=== PATIENT | male | born 1965 | race Caucasian/White ===

== ENCOUNTER 2016-08-31 09:34 | Outpatient (CLI) | payer OTHER ==
[2015-04-12 14:37] VITALS: BP 147/78
== END 2016-08-31 09:35 ==
LOC: RT 09:34
PROVIDERS: ATTEND Family Medicine
DX: R00.2 Palpitations (principal)
CPT/HCPCS: 93225

== ENCOUNTER 2016-12-31 14:29 | Outpatient (CLI) | payer OTHER ==
[2015-04-12 14:37] VITALS: BP 147/78
--- NOTE | 2016-12-31 15:01 | Diagnostic Imaging Report ---
RIGO SOUSA [facility] [address] [address] Report Submission Date: Dec 31, 2016 2:59:00 PM CDT Patient Study Name: TOMÁS SCOTT Date: Dec 31, 2016 2:45:19 PM CDT Modality Type: CR Gender: M Description: LOWER EXTREMITY : 61 Institution: [facility] Physician: RIGO SOUSA Examination: Plain film knee History: Knee discomfort Findings: 3 views of the knee demonstrates percent device in place. No evidence for fracture or loosening. No dislocation. No joint effusion. No soft tissue irregularity. Impression: Knee prosthesis. No fracture or loosening. Electronically signed on Dec 31, 2016 2:59:00 PM CDT by: Norm BRUNER
== END 2016-12-31 14:30 ==
LOC: RAD 14:29
PROVIDERS: ATTEND Family Medicine
DX: M25.561 Pain in right knee (principal); G89.29 Other chronic pain
CPT/HCPCS: 73562

== ENCOUNTER 2017-03-30 08:18 | Outpatient (CLI) | payer OTHER ==
[2015-04-12 14:37] VITALS: BP 147/78
--- NOTE | 2017-03-31 10:55 | SURGICAL PROCEDURE NOTE PAIN ---
REASON FOR VISIT: Mr. Ryan presents with right knee pain for a right knee radiofrequency neurolysis of the genicular sensory nerve innervation of the right knee for peripheral causalgia and complex regional pain syndrome of the right knee. He tells me he had better than 80% relief following the knee genicular nerve root local anesthetic injection which lasted 24 hours. He still has some improvement but only modest. Plan today for superior, medial, and lateral and inferior medial genicular radiofrequency neurolysis with IV sedation. PROCEDURE PERFORMED: Superior, medial, and lateral and inferior medial genicular radiofrequency neurolysis with IV sedation. DESCRIPTION OF PROCEDURE: Consent was obtained after risks were fully explained including bleeding, infection, nerve damage, worsening of symptoms, and no improvement. Patient was positioned supine on the fluoroscopic procedure table and a sterile prep and drape were applied. Under AP and oblique fluoroscopic imaging, a 15-cm , 18-gauge radiofrequency needle was advanced to the location of the superior and inferior genicular nerves at the junction of the epicondylar process of the medial portion of the femur and the proximal portion of the medial tibial condyle. In the same fashion, a lateral needle was placed at the epicondylar margin of the distal femur of the right lateral knee. Then Omnipaque was placed which revealed adequate spread over the area in each knee and there was no evidence of motor stimulation at the knee joint. At this point, each of the nerve roots were anesthetized with bupivacaine mixed with lidocaine and triamcinolone. Following this, radiofrequency lesioning was performed at 80 degrees centigrade for a period of 120 seconds. Patient tolerated the procedure well. There were no apparent complications. ASSESSMENT: 1. Chronic right knee pain, status post knee replacement. 2. Peripheral causalgia. 3. Complex regional pain syndrome of right knee. PLAN: I did dispense information on DRG stimulation in the event that his knee pain should persist. We will follow him up in [address] Del Rio, thank you very much for allowing me to take part in the care of this nice gentleman. cc: Dr. Alec BRUNER
== END 2017-03-30 08:20 ==
LOC: OUT 08:18
PROVIDERS: ATTEND Anesthesiology Pain Medicine
DX: G57.71 Causalgia of right lower limb (principal); G89.4 Chronic pain syndrome; M25.561 Pain in right knee
CPT/HCPCS: 64640; 99213; G0463; Q9966; S1016

== ENCOUNTER 2017-03-30 10:07 | Outpatient (CLI) | payer OTHER ==
[2015-04-12 14:37] VITALS: BP 147/78
[~2017-03-30 10:07] MED LIST: BUPIVACAINE HCL/PF 2.5 MG/ML 10ML VIAL IV ONE; LIDOCAINE HCL/PF 2% 100 MG/5 ML VIAL IJ ONE; MIDAZOLAM HCL 2 MG/2 ML VIAL ONE; NORMAL SALINE 500 ML IV.SOLN IV ONE; SALINE FLUSH 10 ML DISP.SYRIN IVF ONE; TRIAMCINOLONE ACETONID 40MG/ML VIAL ONE; fentaNYL CITRATE/PF 100 MCG/ 2ML AMP ONE
--- NOTE | 2017-03-30 13:43 | Diagnostic Imaging Report ---
RIGO SOUSA [facility] [address] [facility] [address] [address] Report Submission Date: Mar 30, 2017 11:19:53 AM POLISHER APPRENTICE Patient Study Name: TOMÁS SCOTT Date: Mar 30, 2017 10:30:41 AM POLISHER APPRENTICE Modality Type: US Gender: M Description: UNILAT LTD STDY EXT VEINS : 61 Institution: [facility] Physician: RIGO SOUSA Examination: Ultrasound vein History: Calf discomfort Findings: Sonographic evaluation of the left lower extremity venous system from the groin to the popliteal fossa inclusive. Normal compressibility. No luminal filling defect. Normal waveforms and response to augmentation. No popliteal region fluid collection. Impression: No evidence for deep venous thrombosis. Electronically signed on Mar 30, 2017 11:19:53 AM POLISHER APPRENTICE by: Norm BRUNER
== END 2017-03-30 10:10 ==
LOC: RAD 10:07
PROVIDERS: ATTEND Family Medicine
DX: M79.662 Pain in left lower leg (principal)
CPT/HCPCS: 93971; J2001; J2250; J3010; J3301; J3490; J7060

== ENCOUNTER 2017-05-25 08:52 | Outpatient (CLI) | payer OTHER ==
[2015-04-12 14:37] VITALS: BP 147/78
--- NOTE | 2017-05-28 10:05 | PAIN CLINIC PROGRESS NOTES ---
Dear Garo: REASON FOR VISIT: I had the opportunity of seeing Rasta Ryan. This is a patient with right knee pain, peripheral causalgia, and complex regional pain syndrome of the knee status post knee replacement and revision x2. He had an initial good response to a genicular nerve block. He has not had a beneficial response to radiofrequency peripheral nerve root ablation. At this point, I have recommended a dorsal root ganglion neurostimulator, as this has been shown to be very effective at controlling CRPS/peripheral causalgia of the knees. I also discussed its use for lumbar radiculitis and his history of failed back surgical syndrome as well. I did tell him I will need a new CAT scan of his lumbar spine for evaluation prior to any further consideration of implant and we would obtain a study of his psychologic inventory as required. He would like for me to increase his medication and I told him that I would take over the prescription medication of Percocet, and I would increase it to 7.5 mg twice a day and continue him on gabapentin 600 mg 4 times a day and he would follow up in my office. PLAN: At this point, we will begin to actively seek approval for a trial for neuromodulation of complex regional pain syndrome/peripheral causalgia of his right knee. Dr. Del Rio, thank you again for allowing me to take part in the care of this nice gentleman. I appreciate the opportunity to take part in the care of your patients. cc: Dr. Alec BRUNER
== END 2017-05-25 08:53 ==
LOC: OUT 08:52
PROVIDERS: ATTEND Anesthesiology Pain Medicine
DX: G90.523 Complex regional pain syndrome I of lower limb, bilateral (principal); G57.70 Causalgia of unspecified lower limb; Z96.653 Presence of artificial knee joint, bilateral
CPT/HCPCS: 99214; G0463

== ENCOUNTER 2018-04-26 11:59 | Outpatient (CLI) | payer OTHER ==
[2015-04-12 14:37] VITALS: BP 147/78
[2018-04-26 12:54] LABS: eGFR (Non-African) > 60
== END 2018-04-26 12:01 ==
LOC: LAB 11:59
PROVIDERS: ATTEND Family Medicine
DX: I10 Essential (primary) hypertension (principal)
CPT/HCPCS: 36415; 80053; 80061

== ENCOUNTER 2018-09-16 18:53 | Observation (INO) | payer OTHER ==
[2018-09-16] MEDS ORDERED: 0.9 % SODIUM CHLORIDE 1,000 ML IV ONE (19:08)
[2018-09-16] MEDS ORDERED: ASPIRIN 81 MG CHEW TAB ONE (19:28)
[2018-09-16] MEDS ORDERED: ASPIRIN 81 MG CHEW TAB PO ONE (19:28)
[2018-09-16 19:35] LABS: BASOPHILS % 0.3 % (0.0-1.5); NEUTROPHILS # 4.7 # k/uL (1.4-7.7)
[2018-09-16 19:56] LABS: eGFR (Non-African) > 60
--- NOTE | 2018-09-16 20:56 | Diagnostic Imaging Report ---
PERI FERRER (MUNICIPAL CLERK) - ER [facility] [address] [facility].[address] [address] Report Submission Date: Sep 16, 2018 8:09:24 PM CDT Patient Study Name: TOMÁS SCOTT Date: Sep 16, 2018 7:15:34 PM CDT Modality Type: DX Gender: M Description: CHEST 2VIEW : 61 Institution: [facility] Physician: PERI FERRER (MUNICIPAL CLERK) - ER Two view chest Clinical history: Chest pain Findings: The heart size is normal. The pulmonary vasculature is normal. No pleural effusion, pneumothorax or alveolar consolidation. There is atelectasis or scarring left lower lobe. Impression: No acute disease in the chest Electronically signed on Sep 16, 2018 8:09:24 PM CDT by: Michel BRUNER
[2018-09-16] MEDS ORDERED: traMADol HCL 50 MG TABLET PO PRN (22:22)
[2018-09-16] MEDS ORDERED: POTASSIUM CHLORIDE 20 MEQ TABLET.ER PO ONE (22:32)
--- NOTE | 2018-09-16 22:34 | ED Physician Documentation ---
Syncope/Near Syncope - HISTORIAN Historian: patient, spouse - HPI Stated Complaint: near syncope Chief Complaint: Syncope Witnessed: Yes Witnessed By: bystander Position at Time of Episode: standing Symptoms Prior to Episode: palpitations Character of Events(s): almost passed out Symptoms after Event: incontinent of urine Location of Injury: none Associated Symptoms: none Further Comments: yes (53 year old male patient presents after near syncopal episode. Patient states he was loading a door into the back of his truck when he began having palpitations and became dizzy. He sat down in his truck, states he nearly passed out, reports being incontinent of urine. States he did not loose consciousness today. reports patient fell off treadmill at the [facility] yesterday and passed out.) - ROS CONST: denies: recent illness EYES/ENT: none GI/: denies: diarrhea, black stools, problems urinating, other MS/SKIN/LYMPH: denies: joint pain, leg swelling, rash, swollen glands, ankle swelling, other NEURO/PSYCH: denies: confusion, anxiety, depression, other - PAST HX Cardiac Disease: other (HTN) PE Risk Factors: hypertension Other History: Other (arthritis, GERD, ) Surgeries/Procedures: cholecystectomy, other (bilateral knee replacements. ) Allergies/Adverse Reactions: Allergies Allergy/AdvReac Type Severity Reaction Status Date / Time hydrocodone bitartrate Allergy Verified 09/16/18 19:59 [From Vicodin] - SOCIAL HX Smoking History: cigarettes - FAMILY HX Family History: denies: none - VITAL SIGNS Vital Signs: Vital Signs Temp Pulse Resp BP Pulse Ox 98.9 F 67 18 151/70 99 09/16/18 22:28 09/16/18 21:12 09/16/18 22:28 09/16/18 22:28 09/16/18 22:28 - REVIEWED ASSESSMENTS Nursing Assessment Reviewed: Yes Vitals Reviewed: Yes Progress - Progress Progress: Reviewed lab and xray results with patient; recommend admission for further evaluation. Case discussed with Dr Del Rio; will accept for rule out HI and monitoring. - EKG/XRAY/CT EKG: rhythm (SR, no acute changes, rate 72) ED Results Lab/Radiology - Lab Results Lab Results: Lab Results 09/16/18 09/16/18 09/16/18 19:08 19:07 19:07 WBC 7.60 K/ul K/ul (4.00-12.00) RBC 3.94 M/ul M/ul (3.90-5.20) Hgb 12.4 g/dL g/dL (12.0-18.0) Hct 35.9 % L % (37.0-53.0) MCV 91.0 fl fl (80.0-100.0) MCH 31.4 pg pg (28.0-34.0) MCHC 34.5 g/dL g/dL (30.0-36.0) RDW 14.4 % H % (11.3-14.3) Plt Count 223 K/mm3 K/mm3 (130-400) Neut % (Auto) 62.1 % % (39.0-79.0) Lymph % (Auto) 29.2 % % (16.0-50.0) [place] % (Auto) 5.4 % % (0.0-11.0) Eos % (Auto) 3.0 % % (0.0-6.8) Baso % (Auto) 0.3 % % (0.0-1.5) Neut # (Auto) 4.7 # k/uL # k/uL (1.4-7.7) Lymph # (Auto) 2.2 # k/uL # k/uL (0.6-4.0) [place] # (Auto) 0.4 # k/uL # k/uL (0.0-0.9) Eos # (Auto) 0.2 # k/uL # k/uL (0.0-0.6) Baso # (Auto) 0.0 # k/uL # k/uL (0.0-0.5) Sodium 137 mmol/L mmol/L (137-145) Potassium 3.0 mmol/L L mmol/L (3.5-5.1) Chloride 97 mmol/L L mmol/L (98-107) Carbon Dioxide 31 mmol/L H mmol/L (22-30) BUN 12 mg/dL mg/dL (9-20) Creatinine 1.14 mg/dL mg/dL (0.66-1.25) Est GFR ( Amer) > 60 (60 - ) Est GFR (Non-Af Amer) > 60 (60 - ) Glucose 140 mg/dL H mg/dL (74-106) Calcium 8.6 mg/dL mg/dL (8.4-10.2) Total Bilirubin 0.3 mg/dL mg/dL (0.2-1.3) AST 30 U/L U/L (15-46) ALT 22 U/L U/L (13-69) Alkaline Phosphatase 53 U/L U/L (38-126) Troponin I < 0.012 ng/mL L ng/mL (0.012-0.034) Total Protein 6.6 g/dL g/dL (6.3-8.2) Albumin 4.1 g/dL g/dL (3.5-5.0) - Radiology Radiology Impressions: Two view chest Clinical history: Chest pain Findings: The heart size is normal. The pulmonary vasculature is normal. No pleural effusion, pneumothorax or alveolar consolidation. There is atelectasis or scarring left lower lobe. Impression: No acute disease in the chest Electronically signed on Sep 16, 2018 8:09:24 PM CDT by: Michel Wallace - Orders Orders: ED Orders Category Date Time Status Continuous EKG monitoring Q30M Care 09/16/18 19:08 Active Continuous Pulse Oximetry Q30M Care 09/16/18 19:[address] IV Lock 1T Care 09/16/18 19:08 Active CHEST 2VIEW [RAD] Stat Exams 09/16/18 19:08 Completed CBC/PLATELET/DIFF Stat Lab 09/16/18 19:07 Completed CMP Stat Lab 09/16/18 19:07 Completed TROPONIN I Stat Lab 09/16/18 19:08 Completed UA W/MICRO IF INDICATED Stat Lab 09/16/18 19:08 Ordered URINALYSIS Stat Lab 09/16/18 21:10 Ordered 0.9 % Sodium Chloride [Normal Saline] 1,000 ml Med 09/16/18 19:08 Discontinued IV NOW Aspirin [Dale] Med 09/16/18 19:28 Discontinued 324 mg .ROUTE .STK-MED ONE Aspirin [Dale] Med 09/16/18 19:28 Discontinued 324 mg PO NOW ONE EKG WITH COMPARISON Stat Ther 09/16/18 19:08 Ordered Syncope Physical Exam - Physical Exam General Appearance: mild distress EENT: nml eye inspection, PERRL, nml ENT inspection, no apparent trauma, pharynx nml, no CSF leak Respiratory: no resp distress, chest non-tender, breath sounds normal CVS: reg rate & rhythm, heart sounds normal, equal pulses, no murmur, no gallop, PMI nml, no JVD, no friction rub, 24 Abdomen: non-tender, no organomegaly, nml bowel sounds, no distention Skin: normal color, warm/dry, NR, INT, PAL, DR Extremities: non-tender, normal range of motion, no evidence of injury, no edema, J, CROWN BLOCKER - Neuro/Psych Higher Functions: alert, oriented x3, no evidence of acute CVA, mood/affect nml Cranial Nerves: nml as tested Cerebellar: nml as tested, nml gait Sensorimotor: nml motor response, nml sensory response, nml reflexes, nml gait Discharge Clincal Impression: Near syncope Syncope Qualifiers: Syncope type: unspecified Qualified Code(s): R55 - Syncope and collapse Condition: Stable Disposition: ADMITTED INPATIENT Decision to Admit: [id number] Decision Time: 22:00
[2018-09-16] MEDS ORDERED: POTASSIUM CHLORIDE 20 MEQ TABLET.ER ONE (22:38)
[2018-09-16] MEDS ORDERED: GABAPENTIN 300 MG CAPSULE ONE (22:39)
[2018-09-16] MEDS ORDERED: traZODone HCL 50 MG TABLET ONE (22:39)
[2018-09-16] MEDS ORDERED: METOPROLOL TARTRATE 25 MG TABLET ONE (22:39)
[2018-09-16] MEDS: METOPROLOL TARTRATE 50 MG TABLET PO SCH (22:46)
[2018-09-16] MEDS ORDERED: oxyCODONE/ACETAMINOPHEN 5/325 TABLET PO ONE (22:48)
[2018-09-16] MEDS: oxyCODONE/ACETAMINOPHEN 5/325 TABLET PO PRN (22:49)
[2018-09-16] MEDS ORDERED: traZODone HCL 50 MG TABLET PO SCH (23:00)
[2018-09-16 23:59] VITALS: BMI 34.4
--- NOTE | 2018-09-17 07:27 | History and Physical Report ---
History of Present Illnes - History of Present Illness Reason for Visit: syncopal episode History of Present Illness: Patient is a 53-year-old male who presented to the ED after his other new syncopal episode. Patient was placed in a door in the back of a pickup with the help someone else when he felt lightheaded. Patient stated he almost blacked out with Dr. benites. Episode lasted approximately 30 seconds is been dissipated. Patient denied that he was having any palpitations or skip beats that he could tell. Patient had a similar episode when he was working on a treadmill at the [facility] yesterday. During that episode and did stated he blacked out completely for a seconds. No precipitating factor was noted. Patient has had two previous syncopal episodes approximately one year ago. Both episode seem to be related to eating something that was cold. Patient denies any chest pain chest pressure. Patient is not had any history of seizure disorder. Patient was subsequently admitted to the hospital for further care and evaluation. - Past Medical History Cardiac: HTN Pulmonary: Other (gastritis) Psych: Anxiety Musculoskeletal: Osteoarthritis - Past Surgical History Past Surgical History: Cholecystectomy, Total Knee Replacement (bilateral), Other (lumbar fusion L3-S!, cervical fusin C6,7) - Past Social History Smoke: No Occupation: disabled Alcohol: None Drugs: None Lives: With Family Domestic Violence: Negative - Health Maintenance Health Maintenance: Cholesterol, Tetanus Influenza Vaccine: No Pneumonia Vaccine: No Resuscitation Status: Resusciation Status Resuscitation Status Full Code - Unable to Obtain History Unable to Obtain: No Review of Systems - Review of Systems Constitutional: negative: Fever, Chills Eyes: negative: pain, vision change, eyelid inflammation ENT: negative: Ear Pain, Ear Discharge, Nose Pain, Nose Discharge, Nose Congestion, Mouth Swelling, Throat Pain, Throat Swelling Respiratory: negative: Cough, Dry, Shortness of Breath, Hemoptysis, SOB with Excertion, Pleuritic Pain, Sputum, Wheezing Cardiovascular: negative: Chest Pain, Palpitations, Edema Gastrointestinal: negative: Nausea, Vomiting, Abdominal Pain, Diarrhea, Constipation, Melena, Hematochezia Genitourinary: negative: Dysuria, Frequency, Incontinence, Hematuria Musculoskeletal: Neck Pain, Back Pain, Leg Pain Skin: negative: Rash Neurological: negative: Weakness, Numbness, Incoordination, Change in Speech, Confusion, Seizures - Medications/Allergies Allergies/Adverse Reactions: Allergies Allergy/AdvReac Type Severity Reaction Status Date / Time hydrocodone bitartrate Allergy Verified 09/16/18 19:59 [From Vicodin] Current Inpatient Medications: Current Inpatient Medications Duloxetine HCl (Cymbalta) 60 mg PO HS [facility] Gabapentin (Neurontin) 600 mg PO TID [facility] Metoprolol Tartrate (Lopressor) 12.5 mg PO BID [facility] Last Admin: 09/16/18 22:46 Dose: 12.5 mg Oxycodone/Acetaminophen (Percocet 5-325) 1 each PO BID PRN PRN Reason: Severe Pain (Score 8-10) Last Admin: 09/16/18 22:49 Dose: 1 each Pantoprazole Sodium (Protonix) 40 mg PO BID [facility] Potassium Chloride (Klor-Con M20) 20 meq PO NOW ONE Stop: 09/16/18 22:33 Last Admin: 09/16/18 22:47 Dose: 20 meq Tramadol HCl (Ultram) 50 mg PO BID PRN PRN Reason: pain Trazodone HCl (Desyrel) 300 mg PO HS [facility] Last Admin: 09/16/18 22:45 Dose: 300 mg Exam - Exam Vital Signs: Vital Signs (72 hours) 09/16/18 09/16/18 09/16/18 18:53 19:08 19:38 Temperature 98.2 F Pulse Rate 74 69 Pulse Rate [ 76 Pulse ox] Respiratory 16 Rate Blood Pressure 139/74 [Left Arm] O2 Sat by Pulse 97 97 97 Oximetry 09/16/18 09/16/18 09/16/18 20:08 20:38 21:00 Temperature Pulse Rate 69 63 67 Pulse Rate [ Pulse ox] Respiratory Rate Blood Pressure [Left Arm] O2 Sat by Pulse 98 98 97 Oximetry 09/16/18 09/16/18 09/16/18 21:12 22:00 22:28 Temperature 98.9 F 98.9 F Pulse Rate Pulse Rate [ 67 67 Pulse ox] Respiratory 16 18 18 Rate Blood Pressure 147/70 151/70 151/70 [Left Arm] O2 Sat by Pulse 97 99 99 Oximetry 09/17/18 09/17/18 09/17/18 02:00 05:56 06:00 Temperature 98.0 F 98.1 F Pulse Rate Pulse Rate [ 56 L 78 Pulse ox] Respiratory 20 20 20 Rate Blood Pressure 129/79 135/63 [Left Arm] O2 Sat by Pulse 98 98 Oximetry General: Alert, Oriented to Person, Oriented to Place, Oriented to Time, Cooperative HEENT: Atraumatic, PERRLA, EOMI, Mouth Mucous membr. moist/[place], Nose Mucous membr. moist/[place] Neck: Normal Range of Motion Lungs: Clear to auscultation, Normal air movement, Speaks full Sentences Cardiovascular: Regular rate, Normal S1, Normal S2, No murmurs Peripheral Edema: WNL Peripheral Pulses: WNL Abdomen: Normal bowel sounds, Soft, No tenderness, No hepatospenomegaly, No masses Integumentary: Normal, [place], Warm, Dry Extremities: No clubbing, No cyanosis, No edema, Normal pulses, No tenderness/swelling Neurological: Normal gait, Normal speech, Strength Equal Bilat, Normal tone, Sensation intact, Cranial nerves 3-12 NL, Reflexes 2+ Psych/Mental Status: Mental status NL, Mood NL, Appropriate Affect, Intact Judgment - Laboratory Results Laboratory Results: Laboratory Results 09/16/18 09/16/18 09/16/18 19:07 19:07 19:08 WBC 7.60 RBC 3.94 Hgb 12.4 Hct 35.9 L MCV 91.0 MCH 31.4 MCHC 34.5 RDW 14.4 H Plt Count 223 Neut % (Auto) 62.1 Lymph % (Auto) 29.2 [place] % (Auto) 5.4 Eos % (Auto) 3.0 Baso % (Auto) 0.3 Neut # (Auto) 4.7 Lymph # (Auto) 2.2 [place] # (Auto) 0.4 Eos # (Auto) 0.2 Baso # (Auto) 0.0 Sodium 137 Potassium 3.0 L Chloride 97 L Carbon Dioxide 31 H BUN 12 Creatinine 1.14 Est GFR ( Amer) > 60 Est GFR (Non-Af Amer) > 60 Glucose 140 H Calcium 8.6 Total Bilirubin 0.3 AST 30 ALT 22 Alkaline Phosphatase 53 Troponin I < 0.012 L Total Protein 6.6 Albumin 4.1 Assessment/Plan - Assessment/Plan (1) Syncope Status: Acute Qualifiers: Syncope type: unspecified Qualified Code(s): R55 - Syncope and collapse Assessment: admitt and montior heart. VTE Assessment - RISK FACTOR SCORE VTE RISK FACTOR SCORES: AGE 40-60 YEARS (no prophalxis needed)
[2018-09-17] MEDS ORDERED: METOPROLOL TARTRATE 25 MG TABLET ONE (07:31)
[2018-09-17] MEDS ORDERED: PANTOPRAZOLE SODIUM 40 MG TABLET.DR ONE (07:31)
[2018-09-17] MEDS ORDERED: GABAPENTIN 300 MG CAPSULE ONE (07:32)
[2018-09-17] MEDS: METOPROLOL TARTRATE 50 MG TABLET PO SCH (08:57)
[2018-09-17] MEDS ORDERED: oxyCODONE/ACETAMINOPHEN 5/325 TABLET PO ONE (08:59)
[2018-09-17] MEDS: oxyCODONE/ACETAMINOPHEN 5/325 TABLET PO PRN (09:00)
[2018-09-17] MEDS ORDERED: PANTOPRAZOLE SODIUM 40 MG TABLET.DR PO SCH (09:00)
[2018-09-17] MEDS ORDERED: GABAPENTIN 300 MG CAPSULE PO SCH (09:00)
[2018-09-17 09:22] VITALS: BP 148/87
[2018-09-18 16:47] LABS: APPEARANCE,URINE CLEAR (CLEAR); COLOR,URINE YELLOW (YELLOW); OCCULT BLOOD,URINE NEGATIVE (NEGATIVE); PH URINE 5.5 (5.0 - 8.0); UROBILINOGEN URINE 0.2 Eu (0.2-1.0)
[2018-09-18] MEDS ORDERED: DULoxetine HCL 30 MG CAPSULE.DR PO SCH (21:00)
--- NOTE | 2018-10-05 14:10 | Discharge Summary ---
Discharge Summary - Discharge [facility] Admission Date: 09/17/18 (Observation) Discharge Date: 09/17/18 (Home) Discharge To: Home Condition at Discharge: Stable Allergies/Adverse Reactions: Allergies Allergy/AdvReac Type Severity Reaction Status Date / Time hydrocodone bitartrate Allergy Verified 09/16/18 19:59 [From Vicodin] Discharge Summary: Patient was placed on a heart monitor. Patient rhythm remained a normal sinus without any irregularities. Patient denies any further syncopal new syncopal episodes.WBC and CMP were normal other than some mild hypokalemia. Patient was started on supplemental potassium therapy. - Final Diagnosis (1) Syncope Problems: Patient was advised to continue to monitor his syncopal/new syncopal episode to see if there's any precipitating cause. Patient will be placed on an event monitor. Patient with is vied to make sure these doing well hydrated.Patient was started on supplemental potassium therapy with improvement of his potassium to 3.2. (2) Hypokalemia Problems: Improved.
== END 2018-09-17 11:30 | disposition home or self-care (01) ==
LOC: ED 18:53 → SOUTH 21:24
PROVIDERS: ADMIT Family Medicine; ATTEND Family Medicine
DX: R55 Syncope and collapse (principal)
CPT/HCPCS: 36415; 71046; 80053; 81002; 84484; 85025; 93005; 99218; A9270; G0378; J7030; S1016

== ENCOUNTER 2018-11-25 22:43 | Emergency (ER) | payer OTHER ==
--- NOTE | 2018-11-25 22:47 | ED Physician Documentation ---
Syncope/Near Syncope - HISTORIAN Historian: patient - HPI Stated Complaint: syncope Chief Complaint: Syncope Additional Information: Patient presents to ED after having another syncopal episode just prior to arrival. Patient states he was walking over to his neighbor's house ([address]), while walking up the street, he became short of breath and chest pressure/pain. He was able to make it to a parked car where he passed out, hitting his the back of his head and became incontinent of urine. He states he thinks he was out about 30 seconds. When he regained consciousness he called 911. Patient had similar symptoms in September 2018. He was supposed to have a stress test, however, on the day of the test he was hypertensive and the test was canceled. He did not reschedule. Witnessed: No Position at Time of Episode: other (leaning against car) Symptoms Prior to Episode: other (chest pressure/shortness of breath) Character of Events(s): lost consciousness Symptoms after Event: incontinent of urine Location of Injury: head Associated Symptoms: chest pain, shortness of breath, other (chest pressure) - ROS CONST: denies: fever EYES/ENT: denies: problems with vision GI/: denies: diarrhea MS/SKIN/LYMPH: denies: leg swelling NEURO/PSYCH: denies: confusion - PAST HX Cardiac Disease: none PE Risk Factors: hypertension Surgeries/Procedures: other (several spine surgeries, bilateral total knee, left shoulder) Allergies/Adverse Reactions: Allergies Allergy/AdvReac Type Severity Reaction Status Date / Time hydrocodone bitartrate Allergy Verified 11/25/18 23:40 [From Vicodin] Home Medications: Ambulatory Orders Medication Instructions Recorded Tizanidine HCl [Zanaflex] 4 mg PO PRN 11/25/18 - SOCIAL HX Smoking History: non-smoker Alcohol Use: none Drug Use: none - FAMILY HX Family History: none - VITAL SIGNS Vital Signs: Vital Signs Temp Pulse Resp BP Pulse Ox 98.3 F 63 16 150/85 93 11/25/18 22:45 11/25/18 22:45 11/25/18 22:45 11/25/18 22:45 11/25/18 22:45 - REVIEWED ASSESSMENTS Nursing Assessment Reviewed: Yes Vitals Reviewed: Yes Progress - Progress Progress: 1155 Potassium replaced 1155 Discussed with [place] for transfer. EKGs faxed as requested [phone] Santos, agrees with transfer for chest pain, syncope. ED Results Lab/Radiology - Lab Results Lab Results: Lab Results 11/25/18 11/25/18 11/25/18 23:08 23:08 23:08 WBC 6.40 K/ul K/ul (4.00-12.00) RBC 3.88 M/ul L M/ul (3.90-5.20) Hgb 12.2 g/dL g/dL (12.0-18.0) Hct 35.1 % L % (37.0-53.0) MCV 90.0 fl fl (80.0-100.0) MCH 31.5 pg pg (28.0-34.0) MCHC 34.8 g/dL g/dL (30.0-36.0) RDW 13.5 % % (11.3-14.3) Plt Count 282 K/mm3 K/mm3 (130-400) Neut % (Auto) 56.2 % % (39.0-79.0) Lymph % (Auto) 32.4 % % (16.0-50.0) [place] % (Auto) 7.0 % % (0.0-11.0) Eos % (Auto) 4.0 % % (0.0-6.8) Baso % (Auto) 0.4 % % (0.0-1.5) Neut # (Auto) 3.6 # k/uL # k/uL (1.4-7.7) Lymph # (Auto) 2.1 # k/uL # k/uL (0.6-4.0) [place] # (Auto) 0.5 # k/uL # k/uL (0.0-0.9) Eos # (Auto) 0.3 # k/uL # k/uL (0.0-0.6) Baso # (Auto) 0.0 # k/uL # k/uL (0.0-0.5) Sodium 141 mmol/L mmol/L (137-145) Potassium 3.1 mmol/L L mmol/L (3.5-5.1) Chloride 98 mmol/L mmol/L (98-107) Carbon Dioxide 30 mmol/L mmol/L (22-30) Anion Gap 16.1 BUN 19 mg/dL mg/dL (9-20) Creatinine 1.16 mg/dL mg/dL (0.66-1.25) Estimated Creat Clear 98 Est GFR ( Amer) > 60 (60 - ) Est GFR (Non-Af Amer) > 60 (60 - ) Glucose 151 mg/dL H mg/dL (74-106) Calcium 9.0 mg/dL mg/dL (8.4-10.2) Total Bilirubin 0.2 mg/dL mg/dL (0.2-1.3) AST 49 U/L H U/L (15-46) ALT 34 U/L U/L (13-69) Alkaline Phosphatase 64 U/L U/L (38-126) Troponin I < 0.012 ng/mL L ng/mL (0.012-0.034) Total Protein 6.6 g/dL g/dL (6.3-8.2) Albumin 3.9 g/dL g/dL (3.5-5.0) Ethyl Alcohol < 10.0 mg/dL mg/dL (0.0-10.0) - Radiology Radiology Impressions: Report Submission Date: Nov 25, 2018 11:34:16 PM CDT Patient Study Name: TOMÁS SCOTT Date: Nov 25, 2018 10:53:24 PM CDT Modality Type: DX Gender: M Description: CHEST 1VIEW : 61 Institution: [facility] Physician: NGUYEN SMYTH AP chest Clinical history: Syncope. Findings: Examination of the chest in AP upright view with no prior films for comparison demonstrates the lungs to be clear. Cardiac silhouette is enlarged. Bony thorax is intact. Impression: 1. Cardiomegaly. 2. No active disease. Electronically signed on Nov 25, 2018 11:34:16 PM CDT by: Dejan Leyva Report Submission Date: Nov 25, 2018 11:35:55 PM CDT Patient Study Name: TOMÁS SCOTT Date: Nov 25, 2018 11:13:10 PM CDT Modality Type: CT\SR Gender: M Description: CT BRAIN W/O CONTRAST : 61 Institution: [facility] Physician: NGUYEN SMYTH CT brain noncontrast. Date of study: 11/25/2018. CLINICAL HISTORY: syncope with head trauma TECHNIQUE: 5 mm contiguous axial images of the brain, noncontrast. FINDINGS: There is no evidence of intracranial mass effect, hemorrhage, or acute infarct. The lateral ventricles are symmetrical and the 4th ventricle is midline without shift. No acute brain parenchymal changes or extra-axial fluid collections are identified. The posterior fossa contents are within normal limits. 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 There is a left parietal scalp hematoma. The calvarium is intact. The visualized sinuses and mastoid air cells are clear. IMPRESSION: Left scalp hematoma. No acute intracranial process. Electronically signed on Nov 25, 2018 11:35:55 PM CDT by: Dejan Leyva - Orders Orders: ED Orders Category Date Time Status Place IV Lock 1T Care 11/25/18 22:45 Active CHEST 1VIEW [RAD] Stat Exams 11/25/[address] BRAIN W/O CONTRAST Stat Exams 11/25/18 Completed ALCOHOL MEDICAL USE ONLY Stat Lab 11/25/18 23:08 Completed CBC/PLATELET/DIFF Routine Lab 11/25/18 23:08 Completed CMP Routine Lab 11/25/18 23:08 Completed TROPONIN I Stat Lab 11/25/18 23:08 Completed Potassium Chloride [Klor-Con M20] Med 11/25/18 23:50 Discontinued 20 meq PO NOW ONE oxyCODONE HCL/ACETAMINOPHEN [Percocet 5-325] Med 11/26/18 00:02 Discontinued 2 each PO NOW ONE EKG WITH COMPARISON Stat Ther 11/25/18 Ordered Syncope Physical Exam - Physical Exam General Appearance: no acute distress, alert EENT: pupils unequal, left (dilated, non reactive. Patient reports normal since head trauma years ago) Neck/Back: neck supple, no carotid bruit Respiratory: no resp distress, chest non-tender, breath sounds normal CVS: reg rate & rhythm, heart sounds normal Abdomen: non-tender, nml bowel sounds. No: tenderness Skin: warm/dry, normal color Extremities: non-tender, no edema - Neuro/Psych Higher Functions: alert, oriented x3, mood/affect nml Cranial Nerves: nml as tested Cerebellar: nml as tested Sensorimotor: nml motor response, nml reflexes Discharge Clincal Impression: Cardiomegaly Chest pain Qualifiers: Chest pain type: precordial pain Qualified Code(s): R07.2 - Precordial pain Syncope Qualifiers: Syncope type: unspecified Qualified Code(s): R55 - Syncope and collapse Referrals: Alec Del Rio MD [Primary Care Provider] - 2 Days Comments: Patient admits to significant snoring. He may benefit from sleep study. Condition: Stable Disposition: XFER [id number]-TRM HOSP Decision to Admit: NO Date of Decison to Admit: 11/26/18 Decision Time: 00:35
[2018-11-25 23:20] LABS: BASOPHILS % 0.4 % (0.0-1.5); NEUTROPHILS # 3.6 # k/uL (1.4-7.7)
[2018-11-25 23:45] LABS: eGFR (Non-African) > 60
[2018-11-25] MEDS: POTASSIUM CHLORIDE 20 MEQ TABLET.ER PO ONE (23:55)
--- NOTE | 2018-11-25 23:55 | Diagnostic Imaging Report ---
NGUYEN SMYTH [facility] [address] [facility] [address] [place], [place]. [address] Report Submission Date: Nov 25, 2018 11:35:55 PM CDT Patient Study Name: TOMÁS SCOTT Date: Nov 25, 2018 11:13:10 PM CDT Modality Type: CT\SR Gender: M Description: CT BRAIN W/O CONTRAST : 61 Institution: [facility] Physician: NGUYEN SMYTH CT brain noncontrast. Date of study: 11/25/2018. CLINICAL HISTORY: syncope with head trauma TECHNIQUE: 5 mm contiguous axial images of the brain, noncontrast. FINDINGS: There is no evidence of intracranial mass effect, hemorrhage, or acute infarct. The lateral ventricles are symmetrical and the 4th ventricle is midline without shift. No acute brain parenchymal changes or extra-axial fluid collections are identified. The posterior fossa contents are within normal limits. 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 There is a left parietal scalp hematoma. The calvarium is intact. The visualized sinuses and mastoid air cells are clear. IMPRESSION: Left scalp hematoma. No acute intracranial process. Electronically signed on Nov 25, 2018 11:35:55 PM CDT by: Dejan BRUNER
--- NOTE | 2018-11-25 23:56 | Diagnostic Imaging Report ---
NGUYEN SMYTH [facility] [address] [facility] [address] Report Submission Date: Nov 25, 2018 11:34:16 PM CDT Patient Study Name: TOMÁS SCOTT Date: Nov 25, 2018 10:53:24 PM CDT Modality Type: DX Gender: M Description: CHEST 1VIEW : 61 Institution: [facility] Physician: NGUYEN SMYTH AP chest Clinical history: Syncope. Findings: Examination of the chest in AP upright view with no prior films for comparison demonstrates the lungs to be clear. Cardiac silhouette is enlarged. Bony thorax is intact. Impression: 1. Cardiomegaly. 2. No active disease. Electronically signed on Nov 25, 2018 11:34:16 PM CDT by: Dejan BRUNER
[2018-11-26] MEDS: oxyCODONE/ACETAMINOPHEN 5/325 TABLET PO ONE (00:07)
[2018-11-26 01:17] VITALS: BP 151/78
== END 2018-11-26 01:05 | disposition short-term general hospital (02) ==
LOC: ED 22:43
DX: I51.7 Cardiomegaly (principal); R07.2 Precordial pain; R55 Syncope and collapse
CPT/HCPCS: 70450; 71045; 80053; 80320; 84484; 85025; 99282; 99283; A9270; 93005; G0480; S1016